=== PATIENT | male | born 1990 | race Caucasian/White ===

== ENCOUNTER 2021-03-02 03:58 | Inpatient (IN) | payer BC, SELFPAY ==
[~2021-03-02] VITALS: Ht 170.2 cm; Wt 90.7 kg
[2021-03-02 04:05] VITALS: BP_SYST 147
[2021-03-02 05:24] LABS: BASOPHILS % (AUTO) 0.4 % (0.0-2.0); HEMATOCRIT 42.1 % (36-54); HEMOGLOBIN 14.5 g/dL (14.0-18.0); LYMPHOCYTES # (AUTO) 0.9 K/uL (1.0-5.5); LYMPHOCYTES % (AUTO) 11.8 % (20.5-51.5); MEAN CORPUSCULAR HEMOGLOBIN 29 pg (27-31); MEAN CORPUSCULAR HGB CONC 34 % (32-36); MEAN CORPUSCULAR VOLUME 86 fL (79.0-98.0); MONOCYTES # (AUTO) 0.3 K/uL (0.0-1.0); MONOCYTES % (AUTO) 3.9 % (1.7-9.3); NEUTROPHILS # (AUTO) 6.5 K/uL (1.8-7.7); NEUTROPHILS % (AUTO) 83.9 % (40.0-70.0); PLATELET COUNT (AUTO) 121 K/uL (130-430); RED BLOOD CELL COUNT(AUTO) 4.91 MIL/uL (4.2-6.2); RED CELL DISTRIBUTION WIDTH 13.9 % (9.0-15.0); WHITE BLOOD COUNT (AUTO) 7.8 K/uL (4.8-10.8)
[2021-03-02 05:29] LABS: CALCIUM 7.9 mg/dL (8.4-11.0); CREATININE 1.03 mg/dL (0.55-1.30); POTASSIUM 3.8 mmol/L (3.5-5.1)
[2021-03-02] MEDS ORDERED: AZITHROMYCIN 500 MG in NS 250 ML IV ONE (05:30)
[2021-03-02] MEDS ORDERED: cefTRIAXone 1 GM IVPB PREMIX 50 ML IV ONE (05:30)
[2021-03-02] MEDS ORDERED: DEXAMETHASONE SOD PHOSPHATE 10 MG/ML VIAL IVP ONE (05:30)
[2021-03-02 05:33] LABS: PROTHROMBIN TIME 9.8 SECS (9.5-12.5)
[2021-03-02 05:36] LABS: ALBUMIN 3.4 g/dL (3.4-4.8); TOTAL BILIRUBIN 0.7 mg/dL (0.0-1.0)
[2021-03-02 05:42] LABS: C-REACTIVE PROTEIN QUANT 23.9 mg/dL (0-0.5)
[2021-03-02 05:43] LABS: FIBRINOGEN > 500 mg/dL (200-400)
[2021-03-02] MEDS ORDERED: AZITHROMYCIN 500 MG/VIAL (ZITHROMAX) IV ONE (05:49)
[2021-03-02 07:49] LABS: BILIRUBIN,URINE NEGATIVE (NEGATIVE); BLOOD, URINE 1+ (NEGATIVE); COLOR,URINE YELLOW (YELLOW); GLUCOSE,URINE NEGATIVE (NEGATIVE); KETONES,URINE NEGATIVE (NEGATIVE); LEUKOCYTE ESTERASE ,URINE NEGATIVE (NEGATIVE); NITRITE, URINE NEGATIVE (NEGATIVE); PH,URINE 6.5 (5.0-8.0); PROTEIN URINE 1+ (NEGATIVE)
[2021-03-02] MEDS ORDERED: LORazepam 2 MG/ML VIAL IVP PRN (08:00)
[2021-03-02] MEDS ORDERED: MUPIROCIN 2% TOPICAL OINTMENT 22 GM NS PRN (08:00)
[2021-03-02] MEDS ORDERED: ACETAMINOPHEN 325 MG TABLET PO PRN ×2 (08:00→08:15)
[2021-03-02] MEDS ORDERED: ONDANSETRON HCL 4 MG/2 ML VIAL IVP PRN (08:00)
[2021-03-02] MEDS ORDERED: NALOXONE HCL 0.4 MG/ML AMP (NARCAN) IVP PRN ×2 (08:00)
[2021-03-02] MEDS ORDERED: ZOLPIDEM TARTRATE 5 MG TABLET PO PRN (08:00)
[2021-03-02] MEDS ORDERED: MAGNESIUM SULFATE 50 ML IV PRN (08:00)
[2021-03-02] MEDS ORDERED: MORPHINE 2 MG/ML INJ. SYRINGE IVP PRN ×2 (08:00)
[2021-03-02] MEDS ORDERED: POTASSIUM CHLORIDE 20 MEQ TAB.PRT.SR PO PRN (08:00)
[2021-03-02] MEDS ORDERED: DOCUSATE SODIUM 100 MG CAPSULE PO PRN (08:00)
[2021-03-02 08:01] LABS: CLARITY/URINE SLIGHTLY HAZY (CLEAR)
[2021-03-02 08:45] VITALS: BP_SYST 148
[2021-03-02] MEDS: NACL 0.9% 1,000 ML IV SCH ×2 (09:00→18:00)
[2021-03-02] MEDS ORDERED: ENOXAPARIN SODIUM 40 MG/0.4 ML SYRINGE SUBCUT SCH (09:00)
[2021-03-02 09:38] LABS: BACTERIA,URINE FEW /HPF (None Seen); WBC,URINE 0-3 /HPF (0-3)
[2021-03-02] MEDS: CHOLECALCIFEROL (VITAMIN D3) 2,000 UNIT TABLET PO SCH (10:02)
[2021-03-02] MEDS: ASCORBIC ACID 500 MG TABLET PO SCH (10:03)
[2021-03-02 12:00] VITALS: BP_SYST 142
[2021-03-02] MEDS: cefTRIAXone 1 GM in D5W 50 ML IV SCH (13:02)
[2021-03-02 16:00] VITALS: BP_SYST 143
[2021-03-02 20:00] VITALS: BP_SYST 126
[2021-03-02] MEDS: guaiFENesin/DEXTROMETHORPHAN 10 ML UDC PO PRN (21:08)
[2021-03-02] MEDS: ENOXAPARIN SODIUM 40 MG/0.4 ML SYRINGE SUBCUT SCH (21:11)
[2021-03-03] VITALS: BP_SYST 124
[2021-03-03] MEDS: guaiFENesin/DEXTROMETHORPHAN 10 ML UDC PO PRN (04:11)
[2021-03-03] MEDS: DECADRON 4 MG TABLET PO SCH (05:03)
[2021-03-03] MEDS: NACL 0.9% 1,000 ML IV SCH ×2 (05:13→12:55)
[2021-03-03 06:56] LABS: BASOPHILS % (AUTO) 0.1 % (0.0-2.0); HEMATOCRIT 37.6 % (36-54); HEMOGLOBIN 12.9 g/dL (14.0-18.0); LYMPHOCYTES % (AUTO) 10.1 % (20.5-51.5); MEAN CORPUSCULAR HEMOGLOBIN 30 pg (27-31); MEAN CORPUSCULAR HGB CONC 34 % (32-36); MEAN CORPUSCULAR VOLUME 86 fL (79.0-98.0); MONOCYTES # (AUTO) 0.4 K/uL (0.0-1.0); MONOCYTES % (AUTO) 3.9 % (1.7-9.3); NEUTROPHILS # (AUTO) 8.8 K/uL (1.8-7.7); NEUTROPHILS % (AUTO) 85.9 % (40.0-70.0); PLATELET COUNT (AUTO) 166 K/uL (130-430); RED BLOOD CELL COUNT(AUTO) 4.36 MIL/uL (4.2-6.2); RED CELL DISTRIBUTION WIDTH 14.1 % (9.0-15.0); WHITE BLOOD COUNT (AUTO) 10.2 K/uL (4.8-10.8)
[2021-03-03 07:11] LABS: BILIRUBIN,DIRECT 0.6 mg/dL (0.0-0.3); CALCIUM 8.4 mg/dL (8.4-11.0); CREATININE 0.96 mg/dL (0.55-1.30); POTASSIUM 3.9 mmol/L (3.5-5.1)
[2021-03-03 08:00] VITALS: BP_SYST 143
[2021-03-03] MEDS: AZITHROMYCIN 250 MG TABLET PO SCH (08:13)
[2021-03-03] MEDS: ASCORBIC ACID 500 MG TABLET PO SCH (08:13)
[2021-03-03] MEDS: CHOLECALCIFEROL (VITAMIN D3) 2,000 UNIT TABLET PO SCH (08:13)
[2021-03-03] MEDS: ENOXAPARIN SODIUM 40 MG/0.4 ML SYRINGE SUBCUT SCH ×2 (08:14→20:40)
[2021-03-03 08:19] LABS: C-REACTIVE PROTEIN QUANT 21.1 mg/dL (0-0.5)
[2021-03-03] MEDS ORDERED: IPRATROPIUM/ALBUTEROL SULFATE 3 ML AMPUL.NEB (DUONEB) INH PRN (09:00)
[2021-03-03 09:36] LABS: ERYTHROCYTE SEDIMENTATION RATE 67 MM/HR (0-15)
[2021-03-03] MEDS: ALBUTEROL MDI INHALATION 8 GM INH INH PRN (10:48)
[2021-03-03] MEDS: BARICITINIB -Non-Formulary 2 MG TABLET PO SCH (11:50)
[2021-03-03] MEDS: cefTRIAXone 1 GM in D5W 50 ML IV SCH (11:50)
[2021-03-03 12:27] VITALS: BP_SYST 125
[2021-03-03 18:13] VITALS: BP_SYST 130
[2021-03-03 20:20] VITALS: BP_SYST 144
[2021-03-04 00:10] VITALS: BP_SYST 144
[2021-03-04] MEDS: ALBUTEROL MDI INHALATION 8 GM INH INH PRN (00:10)
[2021-03-04] MEDS: NACL 0.9% 1,000 ML IV SCH ×2 (00:28→10:00)
[2021-03-04] MEDS: DECADRON 4 MG TABLET PO SCH (06:09)
[2021-03-04] MEDS: guaiFENesin/DEXTROMETHORPHAN 10 ML UDC PO PRN ×2 (06:18→20:42)
[2021-03-04 06:55] LABS: HEMATOCRIT 40.1 % (36-54); HEMOGLOBIN 13.6 g/dL (14.0-18.0); LYMPHOCYTES % (AUTO) 8.5 % (20.5-51.5); MEAN CORPUSCULAR HEMOGLOBIN 30 pg (27-31); MEAN CORPUSCULAR HGB CONC 34 % (32-36); MEAN CORPUSCULAR VOLUME 87 fL (79.0-98.0); MONOCYTES # (AUTO) 0.6 K/uL (0.0-1.0); MONOCYTES % (AUTO) 4.8 % (1.7-9.3); NEUTROPHILS % (AUTO) 86.7 % (40.0-70.0); PLATELET COUNT (AUTO) 241 K/uL (130-430); RED CELL DISTRIBUTION WIDTH 13.7 % (9.0-15.0); WHITE BLOOD COUNT (AUTO) 11.6 K/uL (4.8-10.8)
[2021-03-04 07:42] LABS: ALBUMIN 2.8 g/dL (3.4-4.8); BILIRUBIN,DIRECT 0.4 mg/dL (0.0-0.3); CALCIUM 8.5 mg/dL (8.4-11.0); CREATININE 0.92 mg/dL (0.55-1.30); TOTAL BILIRUBIN 0.7 mg/dL (0.0-1.0)
[2021-03-04 08:00] VITALS: BP_SYST 133
[2021-03-04] MEDS: ASCORBIC ACID 500 MG TABLET PO SCH (08:12)
[2021-03-04] MEDS: AZITHROMYCIN 250 MG TABLET PO SCH (08:12)
[2021-03-04] MEDS: BARICITINIB -Non-Formulary 2 MG TABLET PO SCH (08:12)
[2021-03-04] MEDS: CHOLECALCIFEROL (VITAMIN D3) 2,000 UNIT TABLET PO SCH (08:12)
[2021-03-04] MEDS: ENOXAPARIN SODIUM 40 MG/0.4 ML SYRINGE SUBCUT SCH ×2 (08:13→20:43)
[2021-03-04 08:19] LABS: INR 0.9 (0.80-1.20); PROTHROMBIN TIME 9.8 SECS (9.5-12.5)
[2021-03-04] MEDS ORDERED: PANTOPRAZOLE SODIUM 40 MG TAB PO ONE (09:30)
[2021-03-04 09:46] LABS: ERYTHROCYTE SEDIMENTATION RATE 65 MM/HR (0-15)
[2021-03-04] MEDS: cefTRIAXone 1 GM in D5W 50 ML IV SCH (12:29)
[2021-03-04 12:33] VITALS: BP_SYST 133
[2021-03-04 16:22] VITALS: BP_SYST 120
[2021-03-04 18:31] VITALS: BP_SYST 133
[2021-03-04 20:00] VITALS: BP_SYST 139
[2021-03-05] MEDS ORDERED: PANTOPRAZOLE SODIUM 40 MG TAB PO SCH (09:00)
== END 2021-03-04 21:45 | disposition short-term general hospital (02) | DRG 177 ==
LOC: SED 03:58 → STU 05:29
PROVIDERS: ADMIT General Practice; ATTEND General Practice
PROC: XW033E5 Introduction of Remdesivir Anti-infective into Peripheral Vein, Percutaneous Approach, New Technology Group 5 (ICD-10-PCS; principal; 2021-03-02)
PROC: XW13325 Transfusion of Convalescent Plasma (Nonautologous) into Peripheral Vein, Percutaneous Approach, New Technology Group 5 (ICD-10-PCS; 2021-03-02)
DX: U07.1 COVID-19 (principal); J12.82 Pneumonia due to coronavirus disease 2019; J96.01 Acute respiratory failure with hypoxia; R74.01 Elevation of levels of liver transaminase levels; E66.9 Obesity, unspecified; Z68.31 Body mass index [BMI] 31.0-31.9, adult
CPT/HCPCS: 36415; 36600; 71045; 76700-TC; 80048; 80053; 80074; 80076; 81000; 82728; 82803-TC; 83036; 83516; 83605; 83615; 83735; 83880; 84484; 85025; 85379; 85384; 85610-TC; 85651-TC; 85730-TC; 86038; 86140; 86710; 86886; 86900; 86901; 87040-TC; 87086; 93005; 93306; 94640; 94664; 96365; 96375; 99291; G0378; J0456; J0696; J1100; J1650; J2060; J7050; J7060; J8540; P9017; Q0144